=== PATIENT | male | born 1955 | race African-American/Black ===

== ENCOUNTER 2021-05-23 13:46 | Inpatient (IN) | payer MEDICAID, OTHER ==
[~2021-05-23] VITALS: Ht 165.1 cm; Wt 92.5 kg
[~2021-05-23 13:46] MED LIST: AMLO5TAB4 PO; CHLO25TA27 PO; FAMO40TA70 PO; TAMS-11 PO
[2021-05-23 17:25] LABS: CHLORIDE 97 mEq/L (98-107)
[2021-05-23 17:26] LABS: BASOPHILS % 0.8 % (0.0-2.0); EOSINOPHILS % 0.5 % (0.0-5.0); HEMATOCRIT. 39.1 % (42.0-52.0); HEMOGLOBIN. 12.4 g/dL (14.0-18.0); LYMPHOCYTES % 12.8 % (20.0-50.0); MEAN CORPUSCULAR HEMOGLOBIN 21.8 pg (28.0-32.0); MEAN PLATELET VOLUME 9.7 fl (7.4-10.4); MONOCYTES % 9.7 % (2.0-8.0); NEUTROPHILS % 76.2 % (40.0-76.0); PLATELET 197 x1000/uL (130-400); RED BLOOD CELL COUNT 5.67 mill/uL (4.7-6.1); RED CELL DISTRIBUTION WIDTH 14.9 % (11.6-14.6)
[2021-05-23 17:30] LABS: CLARITY URINE CLEAR (CLEAR); COLOR URINE YELLOW (YELLOW); KETONES URINE NEGATIVE (NEGATIVE); LEUKOCYTE ESTERASE URINE NEGATIVE (NEGATIVE); NITRITE URINE NEGATIVE (NEGATIVE); OCCULT BLOOD URINE 1+ (NEGATIVE); PH URINE 5.5 (4.5-8.0); PROTEIN URINE NEGATIVE (NEGATIVE); SPECIFIC GRAVITY URINE 1.011 (1.005-1.030); UROBILINOGEN URINE 0.2 E.U./dL (0.2-1.0)
[2021-05-23 18:28] LABS: PLATELET ESTIMATE NORMAL
[2021-05-23] MEDS: POTASSIUM-SODIUM PHOSPHATE POWDER PACKET PO NR (18:44)
[2021-05-24] MEDS ORDERED: ACETAMINOPHEN 325MG TABLET PO PRN ×2 (02:45)
[2021-05-24] MEDS ORDERED: POTASSIUM CHLORIDE INJ 40 MEQ in DEXT 5% WATER 250 ML IV ONE (02:45)
[2021-05-24] MEDS ORDERED: DEXTROSE 50% WATER 50ML SYRINGE IV PRN (02:45)
[2021-05-24] MEDS ORDERED: ONDANSETRON HCL 4MG/2ML INJ IV PRN (02:45)
[2021-05-24] MEDS ORDERED: DIPHENHYDRAMINE 50MG/ML VIAL IV PRN (02:45)
[2021-05-24] MEDS ORDERED: CLONIDINE 0.1MG TABLET PO PRN (02:45)
[2021-05-24] MEDS ORDERED: KCL 20MEQ/100ML PREMIX 100 ML IV NR ×2 (03:00→05:00)
[2021-05-24] MEDS: SODIUM CHLORIDE 0.9% 1,000 ML IV SCH ×2 (03:45→15:16)
[2021-05-24] MEDS: BLOOD SUGAR DIAGNOSTIC STRIP TEST SCH ×5 (06:30→21:00)
[2021-05-24] MEDS: INSULIN LISPRO 100 UNITS/ML SUBCUT SCH ×5 (08:10→20:52)
[2021-05-24 10:34] LABS: CHLORIDE 106 mEq/L (98-107)
[2021-05-24] MEDS ORDERED: INSULIN LISPRO 100 UNITS/ML SUBCUT SCH (12:50)
[2021-05-24 13:49] VITALS: BP 142/85
[2021-05-24 13:50] VITALS: BP 142/85
[2021-05-24 15:20] VITALS: BP 151/87
[2021-05-24 15:30] VITALS: BP 157/84
[2021-05-24] MEDS ORDERED: CEPH500C2 PO (16:14)
[2021-05-24] MEDS ORDERED: ASCO500C15 PO (16:14)
[2021-05-24] MEDS ORDERED: LOSA100T32 PO (16:14)
[2021-05-24] MEDS ORDERED: DOCU-150 PO (16:14)
[2021-05-24] MEDS ORDERED: MULT-1131 PO (16:14)
[2021-05-24] MEDS ORDERED: ZINC50TA69 PO (16:14)
[2021-05-24] MEDS ORDERED: ATOR20TA65 PO (16:14)
[2021-05-24] MEDS ORDERED: METF-416 PO (16:14)
[2021-05-24] MEDS ORDERED: SENN15TA PO (16:14)
[2021-05-24 20:00] VITALS: BP 139/90
[2021-05-25] VITALS: BP 152/98
[2021-05-25] MEDS: SODIUM CHLORIDE 0.9% 1,000 ML IV SCH ×2 (00:47→08:19)
[2021-05-25 04:00] VITALS: BP 147/95
[2021-05-25] MEDS: BLOOD SUGAR DIAGNOSTIC STRIP TEST SCH ×3 (06:16→16:48)
[2021-05-25 08:00] VITALS: BP_SYST 123; BP_SYST 127; BP_DIAS 51; BP_DIAS 73
[2021-05-25] MEDS: INSULIN LISPRO 100 UNITS/ML SUBCUT SCH ×3 (08:11→17:19)
[2021-05-25 16:00] VITALS: BP 160/98
[2021-05-25 17:53] VITALS: BP 157/90
== END 2021-05-25 20:11 | DRG 468 ==
LOC: ER 14:22 → MICUSO 05-24 00:40 → 6WST 05-24 12:11
PROVIDERS: ADMIT Internal Medicine; ATTEND Internal Medicine
DX: N13.9 Obstructive and reflux uropathy, unspecified (principal); N17.9 Acute kidney failure, unspecified; F03.90 Unspecified dementia, unspecified severity, without behavioral disturbance, psychotic disturbance, mood disturbance, and anxiety; E11.9 Type 2 diabetes mellitus without complications; E87.6 Hypokalemia; N40.1 Benign prostatic hyperplasia with lower urinary tract symptoms; Z20.822 Contact with and (suspected) exposure to COVID-19; I10 Essential (primary) hypertension; E78.00 Pure hypercholesterolemia, unspecified; Z87.440 Personal history of urinary (tract) infections; Z79.899 Other long term (current) drug therapy; Z90.49 Acquired absence of other specified parts of digestive tract
CPT/HCPCS: 36415; 80048; 80053; 81003; 82962; 83735; 85025; 87426; 93005; 99285; J1815; J3480; J7030

== ENCOUNTER 2021-05-27 13:10 | Inpatient (IN) | payer MEDICAID ==
[~2021-05-27] VITALS: Ht 167.6 cm; Wt 98.0 kg
[~2021-05-27 13:10] MED LIST changes: +ASCO500C15 PO; +ATOR20TA65 PO; +CEPH500C2 PO; +DOCU-150 PO; -FAMO40TA70 PO; +LOSA100T32 PO; +METF-416 PO; +MULT-1131 PO; +SENN15TA PO; +ZINC50TA69 PO
[2021-05-27 14:59] LABS: BASOPHILS % 0.8 % (0.0-2.0); HEMATOCRIT. 43.5 % (42.0-52.0); HEMOGLOBIN. 13.9 g/dL (14.0-18.0); LYMPHOCYTES % 7.1 % (20.0-50.0); MEAN CORPUSCULAR HEMOGLOBIN 21.8 pg (28.0-32.0); MEAN CORPUSCULAR VOLUME 68.1 fL (80.0-94.0); MEAN PLATELET VOLUME 8.7 fl (7.4-10.4); NEUTROPHILS % 85.1 % (40.0-76.0); PLATELET 258 x1000/uL (130-400); RED BLOOD CELL COUNT 6.38 mill/uL (4.7-6.1); RED CELL DISTRIBUTION WIDTH 14.6 % (11.6-14.6)
[2021-05-27 15:06] LABS: CHLORIDE 104 mEq/L (98-107)
[2021-05-27] MEDS ORDERED: PIPERACILLIN/TAZOBACTAM 3.375GM/50ML PREMIX IV ONE (15:30)
[2021-05-27] MEDS ORDERED: SODIUM CHLORIDE 0.9% 1000ML BAG (SEPSIS BOLUS) IV ONE (15:30)
[2021-05-27] MEDS ORDERED: VANCOMYCIN 1 G PREMIX 200 ML IV NR (15:30)
[2021-05-27 15:32] LABS: PLATELET ESTIMATE NORMAL
[2021-05-27] MEDS: MAGNESIUM 2 G PREMIX 50 ML IV NR ×2 (17:15→20:00)
[2021-05-27] MEDS ORDERED: POTASSIUM CHLORIDE INJ 40 MEQ in DEXT 5% WATER 250 ML IV ONE (17:15)
[2021-05-27] MEDS: HALOPERIDOL LACTATE 5MG/ML VIAL IM NR ×2 (17:16→17:52)
[2021-05-27] MEDS: KCL 20MEQ/100ML PREMIX 100 ML IV SCH ×4 (17:30→22:10)
[2021-05-27] MEDS ORDERED: ACETAMINOPHEN 325MG TABLET PO PRN (20:00)
[2021-05-27] MEDS ORDERED: DOCUSATE SODIUM 100MG CAPSULE PO PRN (20:00)
[2021-05-27] MEDS ORDERED: MAGNESIUM/ALUMINUM HYDROXIDE/SIMETHICONE 30ML UDC PO PRN (20:00)
[2021-05-27] MEDS ORDERED: NA PHOS,M-B/NA PHOS,DI-BA ENEMA 118ML PR PRN (20:00)
[2021-05-27] MEDS ORDERED: CLONIDINE 0.1MG TABLET PO PRN (20:00)
[2021-05-27] MEDS ORDERED: PIPERACILLIN/TAZ 3.375G PREMIX 50 ML IV SCH (20:00)
[2021-05-27] MEDS ORDERED: IPRATROPIUM/ALBUTEROL 0.5-3(2.5)MG/3ML NEB NEB PRN (20:00)
[2021-05-27] MEDS ORDERED: ONDANSETRON HCL 4MG/2ML INJ IV PRN (20:00)
[2021-05-27] MEDS ORDERED: KETOROLAC 15MG/ML VIAL IV PRN (20:00)
[2021-05-27] MEDS ORDERED: HALOPERIDOL LACTATE 5MG/ML VIAL IM PRN (20:00)
[2021-05-27] MEDS ORDERED: GUAIFENESIN 200MG/10ML SUGAR FREE UDC PO PRN (20:00)
[2021-05-27] MEDS ORDERED: NITROGLYCERIN 0.4MG TABLET SL SL PRN (20:00)
[2021-05-27] MEDS ORDERED: DEXTROSE 50% WATER 50ML SYRINGE IV PRN (20:15)
[2021-05-27 20:54] LABS: VITAMIN B12 SERUM 1243 pg/mL (211-911)
[2021-05-27] MEDS: SODIUM CHLORIDE 0.9% 1,000 ML IV SCH (20:59)
[2021-05-27] MEDS ORDERED: ZOLPIDEM TARTRATE 5MG TABLET PO PRN (21:00)
[2021-05-27 21:03] LABS: FOLIC ACID (FOLATE) SERUM > 20.00 ng/mL (>5.38)
[2021-05-27] MEDS: INSULIN LISPRO 100 UNITS/ML SUBCUT SCH (21:40)
[2021-05-27] MEDS: BLOOD SUGAR DIAGNOSTIC STRIP TEST SCH (21:42)
[2021-05-27] MEDS: ENOXAPARIN 40MG/0.4ML SYR SUBCUT SCH (21:52)
[2021-05-27] MEDS: ASCORBIC ACID 500 MG TABLET PO SCH (21:52)
[2021-05-27] MEDS: FAMOTIDINE 20MG TABLET PO SCH (21:52)
[2021-05-27] MEDS ORDERED: KCL 20MEQ/100ML PREMIX 100 ML IV NR (22:00)
[2021-05-27 23:00] VITALS: BP 130/76
[2021-05-28] MEDS ORDERED: INSU100I28 SQ (00:01)
[2021-05-28] MEDS ORDERED: INSU100V37 SQ (00:01)
[2021-05-28] MEDS: DILTIAZEM HCL 60MG TABLET PO SCH ×5 (01:13→23:36)
[2021-05-28] MEDS: SODIUM CHLORIDE 0.9% 1,000 ML IV SCH ×2 (01:13→22:25)
[2021-05-28] MEDS: PIPERACILLIN/TAZOBACTAM 3.375G in DEXT 5% WATER 50ML IV SCH ×4 (01:14→21:00)
[2021-05-28] MEDS: VANCOMYCIN 750 MG PREMIX 150 ML IV SCH ×3 (01:14→20:58)
[2021-05-28 01:22] LABS: CREATINE KINASE MB FRACTION 1.1 ng/mL (0.5-3.6)
[2021-05-28 01:28] LABS: CLARITY URINE CLEAR (CLEAR); COLOR URINE YELLOW (YELLOW); KETONES URINE NEGATIVE (NEGATIVE); LEUKOCYTE ESTERASE URINE TRACE (NEGATIVE); NITRITE URINE NEGATIVE (NEGATIVE); OCCULT BLOOD URINE 2+ (NEGATIVE); PROTEIN URINE NEGATIVE (NEGATIVE); SPECIFIC GRAVITY URINE 1.011 (1.005-1.030); UROBILINOGEN URINE 0.2 E.U./dL (0.2-1.0)
[2021-05-28 01:39] LABS: *AMPHETAMINES SCREEN URINE NEGATIVE (NEGATIVE); METHADONE URINE SCREEN NEGATIVE (NEGATIVE); OPIATES URINE SCREEN NEGATIVE (NEGATIVE); PHENCYCLIDINE URINE SCREEN NEGATIVE (NEGATIVE)
[2021-05-28 01:40] LABS: *BARBITURATES SCREEN URINE NEGATIVE (NEGATIVE); *BENZODIAZEPINES SCREEN URINE NEGATIVE (NEGATIVE); *COCAINE SCREEN URINE NEGATIVE (NEGATIVE); CANNABINOID URINE SCREEN NEGATIVE (NEGATIVE)
[2021-05-28 04:00] VITALS: BP 131/81
[2021-05-28] MEDS: BLOOD SUGAR DIAGNOSTIC STRIP TEST SCH ×4 (06:57→20:57)
[2021-05-28] MEDS: INSULIN LISPRO 100 UNITS/ML SUBCUT SCH ×4 (06:57→20:59)
[2021-05-28 07:04] LABS: EOSINOPHILS % 0.7 % (0.0-5.0); HEMOGLOBIN. 11.5 g/dL (14.0-18.0); LYMPHOCYTES % 19.6 % (20.0-50.0); MEAN CORPUSCULAR HEMOGLOBIN 21.8 pg (28.0-32.0); MEAN CORPUSCULAR VOLUME 68.2 fL (80.0-94.0); MEAN PLATELET VOLUME 8.4 fl (7.4-10.4); MONOCYTES % 8.4 % (2.0-8.0); NEUTROPHILS % 70.3 % (40.0-76.0); PLATELET 195 x1000/uL (130-400); RED BLOOD CELL COUNT 5.28 mill/uL (4.7-6.1); RED CELL DISTRIBUTION WIDTH 14.9 % (11.6-14.6)
[2021-05-28 07:21] LABS: CHLORIDE 112 mEq/L (98-107)
[2021-05-28 07:34] LABS: CREATINE KINASE 127 IU/L (39-308); PHOSPHORUS 2.7 mg/dL (2.5-4.9)
[2021-05-28 08:00] VITALS: BP 114/61
[2021-05-28] MEDS: ASPIRIN 325MG EC TABLET PO SCH (09:06)
[2021-05-28] MEDS: ASCORBIC ACID 500 MG TABLET PO SCH ×2 (09:07→20:59)
[2021-05-28] MEDS: FAMOTIDINE 20MG TABLET PO SCH ×2 (09:07→20:59)
[2021-05-28] MEDS: CHOLECALCIFEROL (D3) 1000 UNIT TABLET PO SCH (09:07)
[2021-05-28] MEDS: ZINC SULFATE 220 MG ( 50 ) CAPSULE PO SCH (09:07)
[2021-05-28] MEDS: TAMSULOSIN HCL 0.4MG SR CAPSULE PO SCH (09:07)
[2021-05-28] MEDS ORDERED: POTASSIUM CHLORIDE INJ 40 MEQ in DEXT 5% WATER 250 ML IV ONE (10:30)
[2021-05-28] MEDS: DUTASTERIDE 0.5MG CAPSULE PO SCH (11:32)
[2021-05-28] MEDS: ACETAMINOPHEN 325MG TABLET PO PRN (11:32)
[2021-05-28] MEDS ORDERED: PNEUMOCOCCAL 23-VAL P-SAC VAC 0.5 ML IM ONE (12:00)
[2021-05-28] MEDS ORDERED: POTASSIUM CHLORIDE 20MEQ TABLET SR PO NR (12:05)
[2021-05-28 12:30] VITALS: BP 127/70
[2021-05-28] MEDS: KCL 20MEQ/100ML PREMIX 100 ML IV SCH ×2 (14:10→14:17)
[2021-05-28 15:57] VITALS: BP 120/68
[2021-05-28 20:00] VITALS: BP 112/73
[2021-05-28] MEDS: ENOXAPARIN 40MG/0.4ML SYR SUBCUT SCH (20:59)
[2021-05-28 23:31] VITALS: BP 119/67
[2021-05-29 04:00] VITALS: BP 124/73
[2021-05-29] MEDS: PIPERACILLIN/TAZOBACTAM 3.375G in DEXT 5% WATER 50ML IV SCH ×3 (05:31→22:40)
[2021-05-29] MEDS: DILTIAZEM HCL 60MG TABLET PO SCH ×4 (06:00→23:18)
[2021-05-29] MEDS: INSULIN LISPRO 100 UNITS/ML SUBCUT SCH ×4 (06:20→20:56)
[2021-05-29] MEDS: BLOOD SUGAR DIAGNOSTIC STRIP TEST SCH ×4 (06:20→20:54)
[2021-05-29 06:49] LABS: CHLORIDE 108 mEq/L (98-107)
[2021-05-29 06:52] LABS: BASOPHILS % 1.2 % (0.0-2.0); HEMATOCRIT. 36.5 % (42.0-52.0); HEMOGLOBIN. 11.6 g/dL (14.0-18.0); LYMPHOCYTES % 27.3 % (20.0-50.0); MEAN CORPUSCULAR HEMOGLOBIN 21.7 pg (28.0-32.0); MEAN CORPUSCULAR VOLUME 68.5 fL (80.0-94.0); MEAN PLATELET VOLUME 8.9 fl (7.4-10.4); MONOCYTES % 8.8 % (2.0-8.0); NEUTROPHILS % 60.7 % (40.0-76.0); PLATELET 189 x1000/uL (130-400); RED BLOOD CELL COUNT 5.32 mill/uL (4.7-6.1)
[2021-05-29 08:04] VITALS: BP 127/67
[2021-05-29] MEDS: CHOLECALCIFEROL (D3) 1000 UNIT TABLET PO SCH (08:40)
[2021-05-29] MEDS: ASPIRIN 325MG EC TABLET PO SCH (08:40)
[2021-05-29] MEDS: ZINC SULFATE 220 MG ( 50 ) CAPSULE PO SCH (08:41)
[2021-05-29] MEDS: ASCORBIC ACID 500 MG TABLET PO SCH ×2 (08:41→20:53)
[2021-05-29] MEDS: VANCOMYCIN 750 MG PREMIX 150 ML IV SCH ×2 (08:41→20:53)
[2021-05-29] MEDS: FAMOTIDINE 20MG TABLET PO SCH ×2 (08:41→20:53)
[2021-05-29] MEDS: TAMSULOSIN HCL 0.4MG SR CAPSULE PO SCH (08:41)
[2021-05-29] MEDS: DUTASTERIDE 0.5MG CAPSULE PO SCH (09:58)
[2021-05-29 12:30] VITALS: BP 138/73
[2021-05-29] MEDS: SODIUM CHLORIDE 0.9% 1,000 ML IV SCH (13:08)
[2021-05-29 15:55] VITALS: BP 123/79
[2021-05-29 20:00] VITALS: BP 121/79
[2021-05-29] MEDS: ENOXAPARIN 30MG/0.3ML SYR SUBCUT SCH (20:54)
[2021-05-30] VITALS: BP 123/80
[2021-05-30] MEDS: SODIUM CHLORIDE 0.9% 1,000 ML IV SCH ×2 (01:41→14:40)
[2021-05-30 04:00] VITALS: BP 120/81
[2021-05-30] MEDS: DILTIAZEM HCL 60MG TABLET PO SCH ×3 (06:47→18:24)
[2021-05-30] MEDS: PIPERACILLIN/TAZOBACTAM 3.375G in DEXT 5% WATER 50ML IV SCH ×3 (06:47→21:50)
[2021-05-30] MEDS: BLOOD SUGAR DIAGNOSTIC STRIP TEST SCH ×4 (06:48→21:50)
[2021-05-30 08:00] VITALS: BP 140/81
[2021-05-30] MEDS: CHOLECALCIFEROL (D3) 1000 UNIT TABLET PO SCH (08:29)
[2021-05-30] MEDS: ENOXAPARIN 30MG/0.3ML SYR SUBCUT SCH ×2 (08:29→21:50)
[2021-05-30] MEDS: ASPIRIN 325MG EC TABLET PO SCH (08:29)
[2021-05-30] MEDS: ZINC SULFATE 220 MG ( 50 ) CAPSULE PO SCH (08:30)
[2021-05-30] MEDS: FAMOTIDINE 20MG TABLET PO SCH ×2 (08:30→21:49)
[2021-05-30] MEDS: TAMSULOSIN HCL 0.4MG SR CAPSULE PO SCH (08:30)
[2021-05-30] MEDS: DUTASTERIDE 0.5MG CAPSULE PO SCH (08:33)
[2021-05-30] MEDS: VANCOMYCIN 750 MG PREMIX 150 ML IV SCH ×2 (08:33→15:31)
[2021-05-30] MEDS: INSULIN LISPRO 100 UNITS/ML SUBCUT SCH ×4 (08:40→21:59)
[2021-05-30] MEDS: ASCORBIC ACID 500 MG TABLET PO SCH ×2 (09:25→21:50)
[2021-05-30 12:00] VITALS: BP 137/80
[2021-05-30 16:00] VITALS: BP 137/84
[2021-05-30 20:58] VITALS: BP 159/87
[2021-05-31] VITALS (7 sets, daily range): BP systolic 134–180; BP diastolic 77–94
[2021-05-31] MEDS: DILTIAZEM HCL 60MG TABLET PO SCH ×4 (00:02→17:53)
[2021-05-31] MEDS: SODIUM CHLORIDE 0.9% 1,000 ML IV SCH (04:58)
[2021-05-31] MEDS: ACETAMINOPHEN 325MG TABLET PO PRN (05:02)
[2021-05-31] MEDS: BLOOD SUGAR DIAGNOSTIC STRIP TEST SCH ×4 (06:50→20:58)
[2021-05-31] MEDS: PIPERACILLIN/TAZOBACTAM 3.375G in DEXT 5% WATER 50ML IV SCH (06:50)
[2021-05-31] MEDS: ZINC SULFATE 220 MG ( 50 ) CAPSULE PO SCH (08:49)
[2021-05-31] MEDS: CHOLECALCIFEROL (D3) 1000 UNIT TABLET PO SCH (08:49)
[2021-05-31] MEDS: ASPIRIN 325MG EC TABLET PO SCH (08:49)
[2021-05-31] MEDS: ENOXAPARIN 30MG/0.3ML SYR SUBCUT SCH (08:51)
[2021-05-31] MEDS: DUTASTERIDE 0.5MG CAPSULE PO SCH (08:52)
[2021-05-31] MEDS: INSULIN LISPRO 100 UNITS/ML SUBCUT SCH ×3 (08:53→17:58)
[2021-05-31] MEDS ORDERED: LEVOFLOXACIN 500MG TABLET PO SCH (11:00)
[2021-05-31] MEDS: ASCORBIC ACID 500 MG TABLET PO SCH (11:08)
[2021-05-31] MEDS: TAMSULOSIN HCL 0.4MG SR CAPSULE PO SCH (11:08)
[2021-05-31] MEDS: FAMOTIDINE 20MG TABLET PO SCH (11:09)
== END 2021-05-31 22:15 | DRG 720 ==
LOC: ER 13:10 → 6WST 17:03 → EDBEDREQTM 17:05 → EDBEDREQ 17:05 → ENRESERV 21:10
PROVIDERS: ADMIT Internal Medicine; ATTEND Internal Medicine
DX: A41.9 Sepsis, unspecified organism (principal); G92.8 Other toxic encephalopathy; D63.8 Anemia in other chronic diseases classified elsewhere; F03.90 Unspecified dementia, unspecified severity, without behavioral disturbance, psychotic disturbance, mood disturbance, and anxiety; E11.9 Type 2 diabetes mellitus without complications; E87.6 Hypokalemia; E88.09 Other disorders of plasma-protein metabolism, not elsewhere classified; R65.20 Severe sepsis without septic shock; I10 Essential (primary) hypertension; N13.6 Pyonephrosis; N40.1 Benign prostatic hyperplasia with lower urinary tract symptoms; R33.8 Other retention of urine; N32.89 Other specified disorders of bladder; Z90.49 Acquired absence of other specified parts of digestive tract; Z79.4 Long term (current) use of insulin; Z88.5 Allergy status to narcotic agent; Z79.899 Other long term (current) drug therapy
CPT/HCPCS: 36415; 71045; 74176; 80048; 80053; 80202; 80305; 81003; 82550; 82553; 82607; 82746; 82962; 83540; 83550; 83605; 83735; 84100; 84145; 84443; 84484; 85025; 90732; 93005; 93306; 93970; 99285; C1893; J1630; J1650; J1815; J2543; J3370; J3475; J3480; J7060; A4315

== ENCOUNTER 2021-10-02 08:01 | Emergency (ER) | payer MEDICAID ==
[~2021-10-02] VITALS: Ht 172.7 cm; Wt 95.0 kg
[~2021-10-02 08:01] MED LIST changes: -AMLO5TAB4 PO; -CEPH500C2 PO; +DOXY150T5 PO; +FAMO20TA8 MT; +INSU100I28 SQ; +INSU100V37 SQ
[2021-10-02] MEDS ORDERED: IBUPROFEN 600MG TABLET PO STA (08:31)
[2021-10-02 09:17] LABS: BASOPHILS % 0.6 % (0.0-2.0); EOSINOPHILS % 0.5 % (0.0-5.0); HEMATOCRIT. 34.6 % (42.0-52.0); HEMOGLOBIN. 10.9 g/dL (14.0-18.0); LYMPHOCYTES % 15.9 % (20.0-50.0); MEAN CORPUSCULAR HEMOGLOBIN 21.4 pg (28.0-32.0); MEAN CORPUSCULAR VOLUME 67.9 fL (80.0-94.0); MEAN PLATELET VOLUME 9.3 fl (7.4-10.4); MONOCYTES % 11.4 % (2.0-8.0); NEUTROPHILS % 71.6 % (40.0-76.0); PLATELET 194 x1000/uL (130-400); RED BLOOD CELL COUNT 5.09 mill/uL (4.7-6.1); RED CELL DISTRIBUTION WIDTH 14.9 % (11.6-14.6)
[2021-10-02 09:25] LABS: CLARITY URINE CLEAR (CLEAR); COLOR URINE YELLOW (YELLOW); KETONES URINE NEGATIVE (NEGATIVE); LEUKOCYTE ESTERASE URINE 3+ (NEGATIVE); NITRITE URINE NEGATIVE (NEGATIVE); OCCULT BLOOD URINE 2+ (NEGATIVE); PROTEIN URINE NEGATIVE (NEGATIVE); SPECIFIC GRAVITY URINE 1.005 (1.005-1.030); UROBILINOGEN URINE 0.2 E.U./dL (0.2-1.0)
[2021-10-02 09:30] LABS: CHLORIDE 99 mEq/L (98-107)
[2021-10-02 09:45] LABS: PLATELET ESTIMATE NORMAL
[2021-10-02] MEDS ORDERED: POTASSIUM CHLORIDE 20MEQ TABLET SR PO ONE (10:45)
[2021-10-02] MEDS ORDERED: CEPH500T MT (10:46)
[2021-10-02 13:50] VITALS: BP 133/70
== END 2021-10-02 14:13 ==
LOC: ER 08:01
DX: R33.9 Retention of urine, unspecified (principal); E87.6 Hypokalemia; N30.90 Cystitis, unspecified without hematuria; I10 Essential (primary) hypertension; E11.9 Type 2 diabetes mellitus without complications; Z79.899 Other long term (current) drug therapy; Z90.49 Acquired absence of other specified parts of digestive tract
CPT/HCPCS: 36415; 51702; 80053; 81003; 85025; 87077; 87186; 93005; 99284; A4315